=== PATIENT | male | born 1990 | race African-American/Black ===

== ENCOUNTER 2017-04-11 09:46 | Emergency (ER) | payer OTHER ==
[~2017-04-11] VITALS: Ht 182.9 cm; Wt 76.7 kg
[2017-04-11 10:08] VITALS: BP 113/73
--- NOTE | 2017-04-11 10:22 | NUR ---
27/M BIB MOTHER C/O NAUSEA,ABDOMINAL DISCOMFORT AFTER EATING, BURNING PAIN UPON LAYING DOWN OR AT NIGHT. HX OF GERD. PT STATED OFTEN DRINKS SODA. AAOX4 WITH EVEN AND STEADY GAIT; LUNGS CLEAR BL; PT DENIES ANY FEVER, CP, SOB, OR COUGH AT THIS TIME; PATIENT STATES PAIN OF 6/10 AT THIS TIME; PATIENT POSITIONED FOR COMFORT; HOB ELEVATED; BEDRAILS UP X2; BED DOWN. ER MD MADE AWARE OF PT STATUS.
--- NOTE | 2017-04-11 10:41 | NUR ---
LAB AT BEDSIDE.
--- NOTE | 2017-04-11 10:44 | NUR ---
Patient being evaluated by DR ORTIZ at bedside.
[2017-04-11] MEDS ORDERED: NACL 0.9% 1,000 ML IV ONE ×2 (10:50→11:55)
[2017-04-11] MEDS ORDERED: PANTOPRAZOLE 40 MG INJ VIAL IVP ONE (10:50)
[2017-04-11 11:08] LABS: APPEARANCE,URINE CLEAR (CLEAR); BILIRUBIN,URINE 1+ (NEGATIVE); BLOOD, URINE NEGATIVE (NEGATIVE); COLOR,URINE YELLOW (YELLOW); LEUKOCYTE ESTERASE ,URINE NEGATIVE (NEGATIVE); NITRITE, URINE NEGATIVE (NEGATIVE); PH,URINE >=9.0 (5.0-9.0); UGLUCOSE NEGATIVE (NEGATIVE)
[2017-04-11 11:10] LABS: HEMATOCRIT 45.5 % (36-52); HEMOGLOBIN 15.4 g/dL (12.0-18.0); MEAN CORPUSCULAR HEMOGLOBIN 33 pg (27-31); MEAN CORPUSCULAR HGB CONC 34 g/dL (33-37); MEAN CORPUSCULAR VOLUME 97 fL (80-94); PLATELET COUNT (AUTO) 272 K/uL (140-450); RED BLOOD CELL COUNT(AUTO) 4.69 MIL/uL (4.20-6.10); RED CELL DISTRIBUTION WIDTH 12.9 % (11.6-13.7); WHITE BLOOD COUNT (AUTO) 3.4 K/uL (4.8-10.8)
[2017-04-11 11:11] LABS: CARBON DIOXIDE 30.2 mmol/L (21-32); POTASSIUM 4.2 mmol/L (3.5-5.1)
[2017-04-11 11:24] LABS: ALBUMIN 4.4 g/dL (3.4-5.0); TOTAL BILIRUBIN 1.6 mg/dL (0.0-1.0)
[2017-04-11 11:44] LABS: EOSINOPHILS % (MANUAL) 4 % (0-4); LYMPHOCYTES % (MANUAL) 42 % (20-46); MONOCYTES % (MANUAL) 11 % (5-12)
[2017-04-11 11:52] LABS: RBC,URINE NONE SEEN /HPF (0-5); WBC,URINE 0-5 (RARE) /HPF (0-5)
--- NOTE | 2017-04-11 11:56 | NUR ---
Patient being reevaluated by DR ORTIZ at bedside.
--- NOTE | 2017-04-11 12:33 | NUR ---
us at bedside.
--- NOTE | 2017-04-11 12:49 | NUR ---
Medardo rubio in [facility] - 04/11/17 at 1250 by [email or web address] Patient being reevaluated by DR ORTIZ at bedside.
--- NOTE | 2017-04-11 12:51 | NUR ---
Patient appears to be resting comfortably in bed. Vital Signs within normal limits. Respirations even and unlabored.WILL CONTINUE TO MONITOR.
[2017-04-11] MEDS ORDERED: MORPHINE SULFATE 4 MG/ML SYR IVP ONE (13:00)
--- NOTE | 2017-04-11 13:01 | NUR ---
PT C/O ABD PAIN 07/13. NOTIFIED DR ORTIZ.
[2017-04-11 14:00] VITALS: BP 110/73
--- NOTE | 2017-04-11 14:00 | NUR ---
Patient discharged with v/s stable. Written and verbal after care instructions given and explained. Patient alert, oriented and verbalized understanding of instructions. Ambulatory with steady gait. All questions addressed prior to discharge. ID band removed. Patient advised to follow up with PMD. Rx of TRAMADOL & OMIPRAZOLE given. Patient educated on indication of medication including possible reaction and side effects. Opportunity to ask questions provided and answered.
== END 2017-04-11 14:00 | disposition home or self-care (01) ==
LOC: MED 09:46
DX: K21.9 Gastro-esophageal reflux disease without esophagitis (principal); K82.8 Other specified diseases of gallbladder; E80.6 Other disorders of bilirubin metabolism; F12.10 Cannabis abuse, uncomplicated
CPT/HCPCS: 36415; 76700; 80053; 81001; 82150; 83690; 84484; 85025; 93005; 96361; 96374; 96375; 99285; C9113; J2270; J7030; Q0092

== ENCOUNTER 2017-05-12 13:01 | Emergency (ER) | payer OTHER ==
[~2017-05-12] VITALS: Ht 185.4 cm; Wt 81.6 kg
[2017-05-12 13:04] VITALS: BP 129/78
--- NOTE | 2017-05-12 13:23 | NUR ---
C/O ABDOMINAL PAIN X 1 MONTH---GENERALIZED WITH N/V/D, FATIGUE . SKIN IS PINK/WARM/DRY; AAOX4 WITH EVEN AND STEADY GAIT; LUNGS CLEAR BL; HR EVEN AND REGULAR; PT DENIES ANY FEVER, CP, SOB, OR COUGH AT THIS TIME; PATIENT STATES PAIN OF 10/10 AT THIS TIME; VSS; PATIENT POSITIONED FOR COMFORT; HOB ELEVATED; BEDRAILS UP X2; BED DOWN. ER MD MADE AWARE OF PT STATUS.
[2017-05-12] MEDS ORDERED: NACL 0.9% 1,000 ML IV SCH (15:04)
[2017-05-12] MEDS ORDERED: FAMOTIDINE 20 MG/2 ML VIAL IVP ONE (15:05)
[2017-05-12] MEDS ORDERED: ONDANSETRON 4 MG/2 ML VIAL IVP ONE (15:05)
[2017-05-12 15:42] LABS: HEMATOCRIT 45.9 % (36-52); HEMOGLOBIN 15.1 g/dL (12.0-18.0); MEAN CORPUSCULAR HEMOGLOBIN 32 pg (27-31); MEAN CORPUSCULAR HGB CONC 33 g/dL (33-37); MEAN CORPUSCULAR VOLUME 97 fL (80-94); PLATELET COUNT (AUTO) 258 K/uL (140-450); RED BLOOD CELL COUNT(AUTO) 4.74 MIL/uL (4.20-6.10); RED CELL DISTRIBUTION WIDTH 12.9 % (11.6-13.7); WHITE BLOOD COUNT (AUTO) 9.4 K/uL (4.8-10.8)
[2017-05-12 16:04] LABS: ALBUMIN 4.6 g/dL (3.4-5.0); CARBON DIOXIDE 23.8 mmol/L (21-32); CREATININE 1.1 mg/dL (0.7-1.3); POTASSIUM 4.8 mmol/L (3.5-5.1); TOTAL BILIRUBIN 0.9 mg/dL (0.0-1.0)
[2017-05-12 16:08] LABS: LYMPHOCYTES % (MANUAL) 6 % (20-46); MONOCYTES % (MANUAL) 5 % (5-12)
[2017-05-12 16:30] VITALS: BP 125/75
--- NOTE | 2017-05-12 16:30 | NUR ---
Patient discharged with v/s stable. Written and verbal after care instructions given and explained. Patient alert, oriented and verbalized understanding of instructions. Ambulatory with steady gait. All questions addressed prior to discharge. ID band removed. Patient advised to follow up with PMD. Rx of ZOFRAN AND PEPCID given. Patient educated on indication of medication including possible reaction and side effects. Opportunity to ask questions provided and answered.
== END 2017-05-12 16:30 | disposition home or self-care (01) ==
LOC: MED 13:01
DX: K29.20 Alcoholic gastritis without bleeding (principal); K21.9 Gastro-esophageal reflux disease without esophagitis
CPT/HCPCS: 36415; 80053; 83690; 85025; 96361; 96374; 96375; 99284; J2405; J3490

== ENCOUNTER 2017-06-02 19:41 | Emergency (ER) | payer OTHER ==
[~2017-06-02] VITALS: Ht 182.9 cm; Wt 77.3 kg
[2017-06-02 19:55] VITALS: BP 123/80
--- NOTE | 2017-06-02 20:07 | NUR ---
PATIENT LEFT WITHOUT BEING SEEN FROM TRIAGE BY . NO FURTHER CARE PROVIDED FOR PATIENT.
== END 2017-06-02 20:07 | disposition left against medical advice (07) ==
LOC: MED 19:41
DX: F10.129 Alcohol abuse with intoxication, unspecified (principal); Z53.21 Procedure and treatment not carried out due to patient leaving prior to being seen by health care provider

== ENCOUNTER 2017-07-29 11:23 | Emergency (ER) | payer OTHER ==
[~2017-07-29] VITALS: Ht 177.8 cm; Wt 72.6 kg
--- NOTE | 2017-07-29 11:25 | NUR ---
PT BIBA BLS TO BED 8 FOR ABD PAIN Addendum: 07/29/17 at 1128 by MEDHT BED 7
[2017-07-29 11:43] VITALS: BP 124/70
--- NOTE | 2017-07-29 11:48 | NUR ---
generalized abd painx 2 weeks with nausea/vomitting today worsening since last night after ingesting alcohol. denies fevers/chills. was given zofran 4mg odt en route. . SKIN IS PINK/WARM/DRY; AAOX4 WITH EVEN AND STEADY GAIT; LUNGS CLEAR BL; HR EVEN AND REGULAR; PT DENIES ANY FEVER, CP, SOB, OR COUGH AT THIS TIME; PATIENT STATES PAIN OF 4/10 AT THIS TIME; VSS; PATIENT POSITIONED FOR COMFORT; HOB ELEVATED; BEDRAILS UP X2; BED DOWN. ER MD MADE AWARE OF PT STATUS.
--- NOTE | 2017-07-29 12:10 | NUR ---
DR GONZALEZ EVALUATING AT BEDSIDE
[2017-07-29] MEDS ORDERED: NACL 0.9% 1,000 ML IV SCH (12:14)
[2017-07-29] MEDS ORDERED: PANTOPRAZOLE 40 MG INJ VIAL IVP ONE (12:15)
[2017-07-29] MEDS ORDERED: METOCLOPRAMIDE 10 MG/2 ML INJ VIAL IVP ONE (12:15)
--- NOTE | 2017-07-29 13:25 | NUR ---
PT SLEEPING AT THIS TIME. STATED N/V AND PAIN RELIVED.
[2017-07-29 14:32] LABS: HEMATOCRIT 46.7 % (36-52); HEMOGLOBIN 15.6 g/dL (12.0-18.0); MEAN CORPUSCULAR HEMOGLOBIN 32 pg (27-31); MEAN CORPUSCULAR HGB CONC 33 g/dL (33-37); MEAN CORPUSCULAR VOLUME 96.6 fL (80-94); PLATELET COUNT (AUTO) 280 K/uL (140-450); RED BLOOD CELL COUNT(AUTO) 4.83 MIL/uL (4.20-6.10); RED CELL DISTRIBUTION WIDTH 13.8 % (11.6-13.7); WHITE BLOOD COUNT (AUTO) 7.4 K/uL (4.8-10.8)
[2017-07-29 14:41] LABS: ANION GAP 14.4 (8-16); CARBON DIOXIDE 27.1 mmol/L (21-32); POTASSIUM 4.5 mmol/L (3.5-5.1)
[2017-07-29 14:49] LABS: ALBUMIN 4.3 g/dL (3.4-5.0); LYMPHOCYTES % (MANUAL) 6 % (20-46); MONOCYTES % (MANUAL) 3 % (5-12); TOTAL BILIRUBIN 0.9 mg/dL (0.0-1.0)
[2017-07-29 15:11] VITALS: BP 120/68
--- NOTE | 2017-07-29 15:11 | NUR ---
Patient discharged with v/s stable. Written and verbal after care instructions given and explained. Patient alert, oriented and verbalized understanding of instructions. Ambulatory with steady gait. All questions addressed prior to discharge. ID band removed. Patient advised to follow up with PMD. Rx of ZOFRAN AND OMEPRAZOLE given. Patient educated on indication of medication including possible reaction and side effects. Opportunity to ask questions provided and answered.
== END 2017-07-29 15:11 | disposition home or self-care (01) ==
LOC: MED 11:23
DX: K21.9 Gastro-esophageal reflux disease without esophagitis (principal); F12.10 Cannabis abuse, uncomplicated; R11.10 Vomiting, unspecified
CPT/HCPCS: 36415; 80053; 83690; 85025; 96361; 96374; 96375; 99284; C9113; J2765; J7030

== ENCOUNTER 2017-08-21 16:33 | Emergency (ER) | payer OTHER ==
[~2017-08-21] VITALS: Ht 185.4 cm; Wt 77.1 kg
[2017-08-21 16:42] VITALS: BP 124/64
--- NOTE | 2017-08-21 16:45 | NUR ---
ASSUMED CARE OF PT AT THIS TIME. C/O DIFFUSE ABDOMINAL PAIN W/ N/V X 12 HOURS. PMH GERD. AAOX4 WITH EVEN AND STEADY GAIT; PATIENT STATES PAIN OF 10/10; VSS; PATIENT POSITIONED FOR COMFORT; HOB ELEVATED; BEDRAILS UP X2; BED DOWN. ER MD MADE AWARE OF PT STATUS. WILL CONTINUE TO MONITOR.
--- NOTE | 2017-08-21 16:46 | NUR ---
WHEEL CHAIR ASSISTED TO BED 8, REPORT GIVEN TO NEERU OSEI
[2017-08-21] MEDS ORDERED: ONDANSETRON 4 MG ODT PO ONE (17:20)
[2017-08-21] MEDS ORDERED: FAMOTIDINE 20 MG TAB PO ONE (17:20)
--- NOTE | 2017-08-21 17:37 | NUR ---
PATIENT MEDICATED FOR ABD.PAIN/NAUSEA
[2017-08-21 17:55] VITALS: BP 118/66
--- NOTE | 2017-08-21 17:55 | NUR ---
Patient discharged with v/s stable. Written and verbal after care instructions given and explained. Patient alert, oriented and verbalized understanding of instructions. Ambulatory with steady gait. All questions addressed prior to discharge. ID band removed. Patient advised to follow up with PMD. Rx of OMEPRAZOLE AND ZOFRAN given. Patient educated on indication of medication including possible reaction and side effects. Opportunity to ask questions provided and answered.
== END 2017-08-21 17:55 | disposition home or self-care (01) ==
LOC: MED 16:33
DX: K29.70 Gastritis, unspecified, without bleeding (principal); F12.188 Cannabis abuse with other cannabis-induced disorder; K21.9 Gastro-esophageal reflux disease without esophagitis; F10.10 Alcohol abuse, uncomplicated
CPT/HCPCS: 99283; S0119

== ENCOUNTER 2017-10-16 13:02 | Emergency (ER) | payer OTHER ==
[~2017-10-16] VITALS: Ht 185.4 cm; Wt 77.3 kg
[2017-10-16 13:17] VITALS: BP 114/68
--- NOTE | 2017-10-16 13:26 | NUR ---
PT AMBULATES TO BED 5
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
--- NOTE | 2017-10-16 14:01 | NUR ---
DR BUNCH AT BEDSIDE FOR EVALUATION
--- NOTE | 2017-10-16 14:01 | NUR ---
DR BUNCH EVALUATING PT AT BEDSIDE
--- NOTE | 2017-10-16 14:25 | NUR ---
X RAY AT BEDSIDE
[2017-10-16] MEDS ORDERED: IBUPROFEN 800 MG TAB PO ONE (14:40)
[2017-10-16 15:15] VITALS: BP 115/62
== END 2017-10-16 15:15 | disposition home or self-care (01) ==
LOC: MED 13:02
DX: M25.511 Pain in right shoulder (principal); K21.9 Gastro-esophageal reflux disease without esophagitis
CPT/HCPCS: 73030; 99284; Q0092

== ENCOUNTER 2018-08-08 15:06 | Emergency (ER) | payer SELFPAY ==
[~2018-08-08] VITALS: Ht 185.4 cm; Wt 81.6 kg
[2018-08-08 15:13] VITALS: BP 115/74
--- NOTE | 2018-08-08 15:17 | NUR ---
Medardo rubio in ED - 08/08/18 at 1518 by MEDSP PT AMBULATED TO ED BED 05
--- NOTE | 2018-08-08 15:18 | NUR ---
PT AMBULATED TO ED BED 12
--- NOTE | 2018-08-08 15:30 | NUR ---
PT PRESENTS TO ED FOR EVALUATION OF EPIGASTRIC PIAN. HX.GERD, UNABLE TO MAKE APPOINTMENT WITH PMD. AAO X4, GCS 15, AMBULATORY WITH STEADY GAIT. RESPIATIONS EVEN AND UNLABORED, BL LUNG CLEAR. SKIN WARM AND DRY, APPROPIATE FOR RACE. ABDOMEN SOFT, NON DISTENDED, ACTIVE BOWEL SOUND X4. VSS, NO ACUTE DISTRESS AT THIS TIME. ED PROVIDER MADE AWARE OF PT STATUS. WILL CONTINUE TO MONITOR
[2018-08-08 16:02] VITALS: BP 110/60
--- NOTE | 2018-08-08 16:02 | NUR ---
Patient discharged with v/s stable. Written and verbal after care instructions given and explained. Patient alert, oriented and verbalized understanding of instructions. Ambulatory with steady gait. All questions addressed prior to discharge. ID band removed. Patient advised to follow up with PMD. Rx of RANITIDINE 150 MG given. Patient educated on indication of medication including possible reaction and side effects. Opportunity to ask questions provided and answered.
== END 2018-08-08 16:02 | disposition home or self-care (01) ==
LOC: MED 15:06
DX: K21.9 Gastro-esophageal reflux disease without esophagitis (principal)
CPT/HCPCS: 99282; 99283

== ENCOUNTER 2020-04-12 08:31 | Emergency (ER) | payer OTHER ==
[~2020-04-12] VITALS: Ht 185.4 cm; Wt 74.8 kg
[2020-04-12 08:39] VITALS: BP 111/65
[2020-04-12 10:00] VITALS: BP 111/65
== END 2020-04-12 10:01 | disposition home or self-care (01) ==
LOC: MED 08:31
DX: H61.22 Impacted cerumen, left ear (principal); K21.9 Gastro-esophageal reflux disease without esophagitis
CPT/HCPCS: 99282

== ENCOUNTER 2021-03-17 12:44 | Emergency (ER) | payer OTHER ==
[~2021-03-17] VITALS: Ht 185.4 cm; Wt 81.6 kg
[2021-03-17 13:09] VITALS: BP 125/67
[2021-03-17] MEDS ORDERED: OFLO10SO16 LEFT EAR (13:33)
[2021-03-17] MEDS ORDERED: NAPR-54 PO (13:33)
[2021-03-17 14:47] VITALS: BP 125/67
--- NOTE | 2021-03-17 14:47 | NUR ---
Patient discharged with v/s stable. Written and verbal after care instructions given and explained. Patient alert, oriented and verbalized understanding of instructions. Ambulatory with steady gait. All questions addressed prior to discharge. ID band removed. Patient advised to follow up with PMD. Rx of NAPROXEN AND OFLOXACIN given. Patient educated on indication of medication including possible reaction and side effects. Opportunity to ask questions provided and answered.
--- NOTE | 2021-03-17 14:47 | NUR ---
NO NURSING INTERVENTIONS PROVIDED
== END 2021-03-17 14:47 | disposition home or self-care (01) ==
LOC: MED 12:44
DX: H60.92 Unspecified otitis externa, left ear (principal)
CPT/HCPCS: 99283

== ENCOUNTER 2021-04-05 13:36 | Emergency (ER) | payer OTHER ==
[~2021-04-05] VITALS: Ht 185.4 cm; Wt 83.5 kg
[~2021-04-05 13:36] MED LIST: NAPR-54 PO; OFLO10SO16 LEFT EAR
[2021-04-05 13:48] VITALS: BP 116/60
--- NOTE | 2021-04-05 13:50 | NUR ---
PT TO WAIT IN LOBBY.
[2021-04-05] MEDS ORDERED: DICYCLOMINE HCL LIQUID 20 MG, ALUMINUM HYD/MAG/SIMETHICONE 30 ML, LIDOCAINE VISCOUS 2% ... PO ONE ×3 (14:20)
[2021-04-05] MEDS ORDERED: DICYCLOMINE HCL LIQUID 10 MG/5 ML UDC ONE (14:33)
[2021-04-05] MEDS ORDERED: ALUMINUM HYD/MAG/SIMETHICONE 30 ML UDC ONE (14:33)
[2021-04-05] MEDS ORDERED: MAG-27 PO (15:48)
--- NOTE | 2021-04-05 16:08 | NUR ---
Patient discharged with v/s stable. Written and verbal after care instructions given and explained. Patient alert, oriented and verbalized understanding of instructions. Ambulatory with steady gait. All questions addressed prior to discharge. ID band removed. Patient advised to follow up with PMD. Rx of MYLANTA given. Patient educated on indication of medication including possible reaction and side effects. Opportunity to ask questions provided and answered.
== END 2021-04-05 16:08 | disposition home or self-care (01) ==
LOC: MED 13:36
DX: R10.10 Upper abdominal pain, unspecified (principal); K21.9 Gastro-esophageal reflux disease without esophagitis; F12.90 Cannabis use, unspecified, uncomplicated; Z79.899 Other long term (current) drug therapy
CPT/HCPCS: 71045; 93005; 99283